=== PATIENT | female | born 1990 | race Caucasian/White ===

== ENCOUNTER 2017-01-30 12:24 | Inpatient (IN) | payer OTHER ==
[~2017-01-30] VITALS: Ht 167.6 cm; Wt 95.9 kg
[2017-01-30] VITALS (16 sets, daily range): BP systolic 108–136; BP diastolic 52–84
[~2017-01-30 12:24] MED LIST: LaMICtal PO; Motrin PO; NO HOME MEDS; Percocet 5/325,Endoc PO
[2017-01-30] MEDS ORDERED: PRENATAL TABLE1 EAC3 PO (12:48)
[2017-01-30 14:59] LABS: EOSINOPHIL (%) 0.5 % (0-5); EOSINOPHIL COUNT 0.1 K/uL (0-0.3); HEMATOCRIT 38.1 % (36.0-46.0); IMMATURE GRANULOCYTE (%) 0.4 % (0.0-0.7); INSTRUMENT ABS NEUTROPHIL CT 6.9 K/uL; LYMPHOCYTE COUNT 1.9 K/uL (1.0-2.8); MCH 32.5 PG (29.0-34.0); MCHC 34.6 G/DL (30.0-36.0); MCV 93.8 FL (83-99); MONOCYTE (%) 5.3 % (3-12); MONOCYTE COUNT 0.5 K/uL (0-0.8); NEUTROPHIL (%) 73.3 % (45-76); NEUTROPHIL COUNT 6.9 K/uL (1.8-6.4); PLATELET COUNT 238 K/uL (156-360); RBC DIS.WIDTH-CV 11.5 % (11.8-14.6); RBC DIS.WIDTH-SD 39.6 % (39-53); RED BLOOD COUNT 4.06 M/uL (3.80-5.20); WHITE BLOOD COUNT 9.4 K/uL (4.1-10.2)
[2017-01-30] MEDS ORDERED: MOTRIN800 MG PO (18:01)
[2017-01-31 23:01] VITALS: BP 118/72
[2017-02-01 09:19] VITALS: BP 131/82
== END 2017-02-01 12:52 | disposition home or self-care (01) | DRG 775 ==
LOC: LDRP-OP 12:24 → 2WEST 12:25 → LDRP-OP 03-05 11:57
PROVIDERS: Nurse Practitioner
PROC: 10E0XZZ Delivery of Products of Conception, External Approach (ICD-10-PCS; principal; 2017-01-30)
PROC: 10907ZC Drainage of Amniotic Fluid, Therapeutic from Products of Conception, Via Natural or Artificial Opening (ICD-10-PCS; 2017-01-30)
PROC: 3E0S3BZ Introduction of Anesthetic Agent into Epidural Space, Percutaneous Approach (ICD-10-PCS; 2017-01-30)
DX: O99.354 Diseases of the nervous system complicating childbirth (principal); Z37.0 Single live birth; G40.909 Epilepsy, unspecified, not intractable, without status epilepticus; Z3A.39 39 weeks gestation of pregnancy; O77.0 Labor and delivery complicated by meconium in amniotic fluid
CPT/HCPCS: 85025; C1755; J1050; J3010; J7120

== ENCOUNTER 2017-11-01 23:31 | Emergency (ER) | payer OTHER ==
[~2017-11-01] VITALS: Ht 167.6 cm; Wt 83.9 kg
[~2017-11-01 23:31] MED LIST changes: +MOTRIN800 MG PO; +PRENATAL TABLE1 EAC3 PO
[2017-11-02 00:07] LABS: HEMATOCRIT 40.1 % (36.0-46.0); HEMOGLOBIN 14.1 G/DL (11.9-15.5); MCH 32.1 PG (29.0-34.0); MCHC 35.2 G/DL (30.0-36.0); MCV 91.3 FL (83-99); PLATELET COUNT 299 K/uL (156-360); RBC DIS.WIDTH-CV 11.6 % (11.8-14.6); RED BLOOD COUNT 4.39 M/uL (3.80-5.20); WHITE BLOOD COUNT 8.7 K/uL (4.1-10.2)
[2017-11-02 00:17] LABS: ALBUMIN 4.5 g/dL (3.2-4.8)
[2017-11-02 00:18] LABS: CHLORIDE 107 mEq/L (99-109); POTASSIUM 3.7 mEq/L (3.7-5.4); SODIUM 140 mEq/L (136-147)
[2017-11-02 00:20] LABS: GLUCOSE 95 mg/dL (70-99); TOTAL PROTEIN 7.1 g/dL (6.4-8.3)
[2017-11-02 00:22] LABS: TOTAL BILIRUBIN 1.6 mg/dL (0.0-1.0)
[2017-11-02 00:23] LABS: ALKALINE PHOSPHATASE 61 IU/L (3-129)
[2017-11-02 00:24] LABS: CREATININE 0.7 mg/dL (0.6-1.3); GFR ESTIMATE (CALCULATED) > 59 mL/min/
[2017-11-02 00:25] LABS: AST (GOT) 14 IU/L (2-34); UREA NITROGEN (BUN) 21 mg/dL (9-23)
[2017-11-02 00:26] LABS: ALT (GPT) 15 IU/L (3-49)
[2017-11-02 00:34] LABS: QUANTITATIVE HCG < 4.0 MIU/ML
[2017-11-02 00:58] VITALS: BP 138/72
== END 2017-11-02 00:58 | disposition home or self-care (01) ==
LOC: EME 23:31
DX: E86.0 Dehydration (principal); G40.909 Epilepsy, unspecified, not intractable, without status epilepticus; Z88.5 Allergy status to narcotic agent
CPT/HCPCS: 80053; 81003; 82948; 84702; 85027; 99281; 99283